=== PATIENT | female | born 1975 | race Caucasian/White ===

== ENCOUNTER 2017-02-06 01:23 | Emergency (ER) | payer SELFPAY ==
[2017-02-06 01:40] VITALS: TEMP 98.2
--- NOTE | 2017-02-06 01:56 | ED PDOC ---
Arrival/HPI - General Chief Complaint: Dizziness/Lightheaded Time Seen by Provider: 02/06/17 01:24 Historian: Patient - History of Present Illness Narrative History of Present Illness (Text): 02/06/17 01:52 Lianne Acuna is a 41 year old female who presents to the emergency department complaining of 1 week duration of dizziness and intermittent episodes of headache for past 3 days. Patient reports she initially felt sharp pain to the left temporal region 3 days ago. States she felt similar quality pain to the right temporal region tonight, which prompted her to present to emergency department for evaluation. Denies any fever, chills, neck pain, nausea, vomiting , diarrhea, urinary symptoms, or any other complaints at this time. Time/Duration: 1 week Symptom Onset: Gradual Symptom Course: Intermittent Severity Level: Mild Activities at Onset: Light Past Medical History - Provider Review Nursing Documentation Reviewed: Yes - Cardiac Hx Cardiac Disorders: No - Pulmonary Hx Respiratory Disorders: Yes Hx Asthma: Yes - Neurological Hx Neurological Disorder: No - HEENT Hx HEENT Disorder: No - Renal Hx Renal Disorder: No - Endocrine/Metabolic Hx Endocrine Disorders: No - Hematological/Oncological Hx Blood Disorders: No - Integumentary Hx Dermatological Disorder: No - Musculoskeletal/Rheumatological Hx Musculoskeletal Disorders: No - Gastrointestinal Hx Gastrointestinal Disorders: No - Genitourinary/Gynecological Hx Genitourinary Disorders: No - Psychiatric Hx Psychophysiologic Disorder: No Hx Substance Use: No Family/Social History - Physician Review Nursing Documentation Reviewed: Yes Family/Social History: No Known Family HX Smoking Status: Never Smoked Hx Alcohol Use: No Hx Substance Use: No Allergies/Home Meds Allergies/Adverse Reactions: Allergies shellfish derived Allergy (Verified 02/06/17 01:39) RASH Home Medications: Home Meds Medication Instructions Recorded Confirmed No Known Home Med 02/06/17 02/06/17 Review of Systems - Physician Review All systems were reviewed & negative as marked: Yes - Review of Systems Constitutional: Normal, Fatigue. absent: Fevers Respiratory: Normal. absent: SOB, Cough Cardiovascular: Normal. absent: Chest Pain, Palpitations Gastrointestinal: absent: Abdominal Pain, Diarrhea, Nausea, Vomiting Neurological: Headache, Dizziness. absent: Focal Weakness Psychiatric: Normal Physical Exam Vital Signs Reviewed: Yes Vital Signs Temp Pulse Resp BP Pulse Ox 02/06/17 04:47 70 18 135/82 100 02/06/17 01:39 98.2 F 91 H 16 155/87 H 99 Temperature: Afebrile Blood Pressure: Normal Pulse: Regular Respiratory Rate: Normal Appearance: Positive for: Well-Appearing, Non-Toxic, Comfortable Pain Distress: None Mental Status: Positive for: Alert and Oriented X 3 - Systems Exam Head: Present: Atraumatic, Normocephalic Pupils: Present: PERRL Extroacular Muscles: Present: EOMI Conjunctiva: Present: Normal Ears: Present: Normal, NORMAL TM, Normal Canal. No: Erythema, TM Bulging Mouth: Present: Moist Mucous Membranes Neck: Present: Normal Range of Motion. No: MIDLINE TENDERNESS, Paraspinal Tenderness Respiratory/Chest: Present: Clear to Auscultation, Good Air Exchange. No: Respiratory Distress, Accessory Muscle Use Cardiovascular: Present: Regular Rate and Rhythm, Normal S1, S2. No: Murmurs Abdomen: Present: Normal Bowel Sounds. No: Tenderness, Distention, Peritoneal Signs Upper Extremity: Present: Normal Inspection. No: Cyanosis, Edema Lower Extremity: Present: Normal Inspection. No: Edema Neurological: Present: GCS=15, CN II-XII Intact, Speech Normal Skin: Present: Warm, Dry, Normal Color. No: Rashes Psychiatric: Present: Alert, Oriented x 3, Normal Insight, Normal Concentration Medical Decision Making ED Course and Treatment: 02/06/17 01:58 Impression: A 41 year old female who presents to the emergency department complaining of dizziness for past week and intermittent headache for past 3 days. Plan: -- CT head -- Labs -- POC urine -- Reassess and disposition Progress Notes: 02/06/17 04:16 CT Head results reviewed: FINDINGS: Limitation: Some of the images are degraded by motion artifact. Inferior margins of the temporal lobes are also not included in their entirety. Brain: Images of the brain with artifact, limit evaluation. Allowing for artifact, no acute hemorrhage or acute infarct identified. Ventricles: No hydrocephalus. Bones/joints: Unremarkable. No acute fracture. Soft tissues: Unremarkable. Sinuses: Unremarkable as visualized. No acute sinusitis. Mastoid air cells: Unremarkable as visualized. No mastoid effusion. IMPRESSION: Suboptimal exam, as above, with no acute intracranial abnormality identified. 02/06/17 04:50 On re-evaluation, patient feels better and is in no acute distress. I have discussed the results and plan with the patient, who expresses understanding. Patient in agreement with plan to be discharged home. Patient is stable for discharge. Patient was instructed to follow up with physician or return if symptoms worsen or new concerning symptoms arise. Re-evaluation Time: 04:44 Reassessment Condition: Re-examined, Improved - Lab Interpretations Lab Results: 02/06/17 01:56 02/06/17 01:56 Lab Results 02/06/17 01:56: Sodium 139, Potassium 4.2, Chloride 107, Carbon Dioxide 22, Anion Gap 14, BUN 9, Creatinine 0.6, Est GFR ( Amer) > 60, Est GFR (Non- Af Amer) > 60, Random Glucose 91, Calcium 8.9, Total Bilirubin 0.2, AST 24, ALT 41, Alkaline Phosphatase 76, Total Protein 7.1, Albumin 3.8, Globulin 3.3, Albumin/Globulin Ratio 1.2 02/06/17 01:56: WBC 6.2, RBC 3.67, Hgb 10.9 L, Hct 32.7 L, MCV 89.1, MCH 29.7, MCHC 33.3, RDW 12.8, Plt Count 257, MPV 9.7, Gran % 41.5 L, Lymph % (Auto) 44.3 H, Harding % (Auto) 10.3 H, Eos % (Auto) 3.4, Baso % (Auto) 0.5, Gran # 2.58, Lymph # 2.8, Harding # 0.6, Eos # 0.2, Baso # 0.03 - RAD Interpretation Radiology Orders: 02/06/17 01:48 HEAD W/O CONTRAST [CT] Stat - Scribe Statement The provider has reviewed the documentation as recorded by the Luisibe Jerry Rhoades Provider Attestation: Provider Scribe Attestation: All medical record entries made by the Scribe were at my direction and personally dictated by me. I have reviewed the chart and agree that the record accurately reflects my personal performance of the history, physical exam, medical decision making, and the department course for this patient. I have also personally directed, reviewed, and agree with the discharge instructions and disposition. Disposition/Present on Arrival - Present on Arrival Any Indicators Present on Arrival: No History of DVT/PE: No History of Uncontrolled Diabetes: No Urinary Catheter: No History of Decub. Ulcer: No History Surgical Site Infection Following: None - Disposition Have Diagnosis and Disposition been Completed?: Yes Diagnosis: Dizziness, Headache Disposition: HOME/ ROUTINE Disposition Time: 04:44 Patient Problems: Current Active Problems Problem Status Onset Dizziness Acute Headache Acute Condition: GOOD Discharge Instructions (ExitCare): Acute Headache (ED), Dizziness (ED) Referrals: Tita Kaiser, [Primary Care Provider] - Follow up with primary
[2017-02-06 02:35] LABS: ADD MANUAL DIFF? NO
[2017-02-06 02:36] LABS: ALB/GLOB RATIO 1.2 (1.1-1.8); ALKALINE PHOSPHATASE 76 U/L (38-133); ALT/SGPT 41 U/L (7-56); AST/SGOT 24 U/L (15-39); BILIRUBIN,TOTAL 0.2 mg/dL (0.2-1.3); BLOOD UREA NITROGEN 9 mg/dL (7-21); CALCIUM 8.9 mg/dL (8.4-10.5); CARBON DIOXIDE 22 mmol/L (21-33); CHLORIDE 107 mmol/L (95-110); GFR AFRICAN-AMERICAN > 60; GLUCOSE,RANDOM 91 mg/dL (70-110); POTASSIUM 4.2 mmol/L (3.6-5.0); SODIUM 139 mmol/L (132-148); TOTAL PROTEIN 7.1 g/dL (5.8-8.3)
[2017-02-06 02:39] LABS: BASO # 0.03 K/mm3 (0.0-2.0); BASO % 0.5 % (0.0-3.0); EOS # 0.2 (0.0-0.7); EOS % 3.4 % (1.5-5.0); GRAN # 2.58 (1.4-6.5); GRAN % 41.5 % (50.0-68.0); HEMATOCRIT 32.7 % (36.0-48.0); LYMPH # 2.8 (1.2-3.4); LYMPH % 44.3 % (22.0-35.0); MEAN CELL VOLUME 89.1 fL (80.0-105.0); MEAN CORPUSCULAR HEMOGLOBIN 29.7 pg (25.0-35.0); MEAN CORPUSCULAR HGB CONC 33.3 g/dl (31.0-37.0); MEAN PLATELET VOLUME 9.7 fl (7.0-11.0); MONO # 0.6 (0.1-0.6); MONO % 10.3 % (1.0-6.0); PLATELET COUNT 257 10^3/uL (120.0-450.0); RED CELL DISTRIBUTION WIDTH 12.8 % (11.5-14.5); WHITE BLOOD COUNT 6.2 10^3/ul (4.5-11.0)
[2017-02-06 04:48] VITALS: BP 135/82; PULSE 70; RESP 18; O2SAT 100
--- NOTE | 2017-02-06 07:31 | CT ---
PROCEDURE: CT HEAD WITHOUT CONTRAST. HISTORY: Headache COMPARISON: None available. TECHNIQUE: Axial computed tomography images were obtained through the head/brain without intravenous contrast. Examination is limited by motion degraded images. Radiation dose: Total exam DLP = 629.06 mGy-cm. This CT exam was performed using one or more of the following dose reduction techniques: Automated exposure control, adjustment of the mA and/or kV according to patient size, and/or use of iterative reconstruction technique. FINDINGS: HEMORRHAGE: No intracranial hemorrhage. BRAIN: Ko-white matter differentiation is preserved. There is no mass, mass effect or abnormal extra-axial fluid collection. VENTRICLES: The ventricles are normal in size, shape and configuration. CALVARIUM: There is no calvarial fracture or extracranial soft tissue swelling. PARANASAL SINUSES: Predominantly clear. MASTOID AIR CELLS: Predominantly clear the OTHER FINDINGS: None. IMPRESSION: Motion degraded study. No acute intracranial abnormality. A preliminary report was provided by [email or web address].
== END 2017-02-06 04:56 | disposition home or self-care (01) ==
LOC: ED 01:23 → MERGE 01:23 → ED 04:56
DX: R42 Dizziness and giddiness (principal); R51 Headache

== ENCOUNTER 2017-02-12 23:20 | Emergency (ER) | payer SELFPAY ==
[2017-02-12 23:33] VITALS: RESP 16; TEMP 98.6; BMI 24.0
--- NOTE | 2017-02-13 00:01 | ED PDOC ---
Arrival/HPI - General Chief Complaint: Dizziness/Lightheaded Time Seen by Provider: 02/12/17 23:37 Historian: Patient - History of Present Illness Narrative History of Present Illness (Text): 02/12/17 23:54 Lianne Acuna is a 41 year old female who presents to the emergency department complaining of dizziness for past week. Describes as a room-spinning sensation which is worsened with movement. States she was evaluated at [facility] for similar symptoms last week and was discharge home after a negative CT Head study. Today patient reports symptoms presented while she was driving. Denies any fever, chills, chest pain, shortness of breath, nausea, vomiting, diarrhea, urinary symptoms, or any other complaints at this time. Time/Duration: 1 week Symptom Onset: Gradual Severity Level: Mild Activities at Onset: Light Past Medical History - Provider Review Nursing Documentation Reviewed: Yes - Infectious Disease Hx of Infectious Diseases: None - Cardiac Hx Cardiac Disorders: No - Pulmonary Hx Respiratory Disorders: Yes Hx Asthma: Yes - Neurological Hx Neurological Disorder: No - HEENT Hx HEENT Disorder: No - Renal Hx Renal Disorder: No - Endocrine/Metabolic Hx Endocrine Disorders: No - Hematological/Oncological Hx Blood Disorders: No - Integumentary Hx Dermatological Disorder: No - Musculoskeletal/Rheumatological Hx Musculoskeletal Disorders: No - Gastrointestinal Hx Gastrointestinal Disorders: No - Genitourinary/Gynecological Hx Genitourinary Disorders: No - Psychiatric Hx Psychophysiologic Disorder: No Hx Substance Use: No - Anesthesia Hx Anesthesia: No - Suicidal Assessment Feels Threatened In Home Enviroment: No Family/Social History - Physician Review Nursing Documentation Reviewed: Yes Family/Social History: No Known Family HX Smoking Status: Never Smoked Hx Alcohol Use: No Hx Substance Use: No Allergies/Home Meds Allergies/Adverse Reactions: Allergies shellfish derived Allergy (Verified 02/06/17 01:39) RASH Review of Systems - Physician Review All systems were reviewed & negative as marked: Yes - Review of Systems Constitutional: Normal. absent: Fatigue, Fevers Respiratory: Normal. absent: SOB, Cough, Sputum Cardiovascular: Normal. absent: Chest Pain, Palpitations Gastrointestinal: Normal. absent: Abdominal Pain, Diarrhea, Nausea, Vomiting Neurological: Headache, Dizziness Psychiatric: Normal Physical Exam Vital Signs Reviewed: Yes Vital Signs Temp Pulse Resp BP Pulse Ox 02/12/17 23:30 98.6 F 102 H 16 131/83 99 Temperature: Afebrile Blood Pressure: Normal Pulse: Tachycardic Respiratory Rate: Normal Appearance: Positive for: Well-Appearing, Non-Toxic, Comfortable Pain Distress: None Mental Status: Positive for: Alert and Oriented X 3 Finger Stick Blood Glucose: 90 - Systems Exam Head: Present: Atraumatic, Normocephalic Pupils: Present: PERRL Conjunctiva: Present: Normal Mouth: Present: Moist Mucous Membranes Neck: Present: Normal Range of Motion. No: MIDLINE TENDERNESS, Paraspinal Tenderness Respiratory/Chest: Present: Clear to Auscultation, Good Air Exchange. No: Respiratory Distress, Accessory Muscle Use Cardiovascular: Present: Regular Rate and Rhythm, Normal S1, S2. No: Murmurs Abdomen: Present: Normal Bowel Sounds. No: Tenderness, Distention, Peritoneal Signs Upper Extremity: Present: Normal Inspection. No: Cyanosis, Edema Lower Extremity: Present: Normal Inspection. No: Edema Neurological: Present: GCS=15, CN II-XII Intact, Speech Normal, Motor Func Grossly Intact, Normal Sensory Function Skin: Present: Warm, Dry, Normal Color. No: Rashes Psychiatric: Present: Alert, Oriented x 3, Normal Insight, Normal Concentration Medical Decision Making ED Course and Treatment: 02/13/17 00:02 Impression: A 41 year old female who presents to the emergency department complaining of 1 week duration of dizziness. Plan: -- Meclizine -- Reassess and disposition Progress Notes: 02/13/17 02:09 On reevaluation the patient feels better and is in no acute distress. I have discussed the results and plan with the patient, who expresses understanding. Patient given the opportunity to ask question, all questions were answered and there is agreement with the plan to discharge the patient home. Patient is stable for discharge. Patient was instructed to follow up with physician/clinic in 1-2 days or return if symptoms persist/worsen or new concerning symptoms arise. - Medication Orders Current Medication Orders: Discontinued Medications Meclizine HCl (Antivert) 25 mg PO STAT STA Stop: 02/12/17 23:53 Last Admin: 02/13/17 00:08 Dose: 25 mg - Scribe Statement The provider has reviewed the documentation as recorded by the Sari Rhoades Provider Attestation: Provider Scribe Attestation: All medical record entries made by the Scribe were at my direction and personally dictated by me. I have reviewed the chart and agree that the record accurately reflects my personal performance of the history, physical exam, medical decision making, and the department course for this patient. I have also personally directed, reviewed, and agree with the discharge instructions and disposition. Disposition/Present on Arrival - Present on Arrival Any Indicators Present on Arrival: No History of DVT/PE: No History of Uncontrolled Diabetes: No Urinary Catheter: No History of Decub. Ulcer: No History Surgical Site Infection Following: None - Disposition Have Diagnosis and Disposition been Completed?: Yes Diagnosis: Labyrinthitis Disposition: HOME/ ROUTINE Disposition Time: 02:04 Patient Plan: Discharge Condition: GOOD Discharge Instructions (ExitCare): Labyrinthitis (ED) Additional Instructions: Take meds as prescribed/follow up with your doctor this week Prescriptions: Meclizine [Meclizine*] 25 mg PO Q6 PRN #20 tab PRN Reason: Dizziness
[2017-02-13 02:13] VITALS: BP 137/76; PULSE 82; O2SAT 98
== END 2017-02-13 02:15 | disposition home or self-care (01) ==
LOC: ED 23:20
DX: H83.09 Labyrinthitis, unspecified ear (principal)

== ENCOUNTER 2017-12-10 12:23 | Emergency (ER) | payer MEDICAID, OTHER ==
[2017-12-10 13:08] VITALS: BMI 24.9
[2017-12-10 13:09] VITALS: PULSE 66; RESP 18; TEMP 98.5
--- NOTE | 2017-12-10 13:34 | ED PDOC ---
Arrival/HPI - General Chief Complaint: Chest Pain Time Seen by Provider: 12/10/17 13:08 - History of Present Illness Narrative History of Present Illness (Text): 42 year old F c Past medical history asthma p/w chest pain x 3 days. Intermittent, sharp in character, midsternal, 5/10 in severity. Associated with cough, chills, headache, increased burping but has been drinking leonidas tyson. Denies Nausea, vomiting, diarrhea, constipation, fever. Works at a day care. Past Medical History - Infectious Disease Hx of Infectious Diseases: None - Reproductive Menopause: No - Cardiac Hx Cardiac Disorders: No - Pulmonary Hx Respiratory Disorders: Yes Hx Asthma: Yes - Neurological Hx Neurological Disorder: No - HEENT Hx HEENT Disorder: No - Renal Hx Renal Disorder: No - Endocrine/Metabolic Hx Endocrine Disorders: No - Hematological/Oncological Hx Blood Disorders: No - Integumentary Hx Dermatological Disorder: No - Musculoskeletal/Rheumatological Hx Musculoskeletal Disorders: No - Gastrointestinal Hx Gastrointestinal Disorders: No - Genitourinary/Gynecological Hx Genitourinary Disorders: No - Psychiatric Hx Psychophysiologic Disorder: No Hx Substance Use: No - Anesthesia Hx Anesthesia: No - Suicidal Assessment Feels Threatened In Home Enviroment: No Family/Social History Family/Social History: No Known Family HX Smoking Status: Never Smoked Hx Alcohol Use: No Hx Substance Use: No Allergies/Home Meds Allergies/Adverse Reactions: Allergies shellfish derived Allergy (Verified 02/06/17 01:39) RASH Review of Systems - Physician Review All systems were reviewed & negative as marked: Yes - Review of Systems Constitutional: absent: Fevers Respiratory: absent: SOB Physical Exam - Physical Exam Narrative Physical Exam (Text): Constitutional: No acute distress. Head: Normocephalic. Atraumatic. Eyes: PERRL. ENT: Moist mucous membranes. Neck: Supple. Cardiovascular: Regular rate. Chest: Reproducible tenderness. Respiratory: Clear to auscultation bilaterally. GI: Soft. Nontender. Nondistended. Back: No CVA tenderness. Musculoskeletal: No tenderness or swelling of extremities. Skin: No rash. Neurologic: Alert, no focal deficit. Vital Signs Temp Pulse Resp BP Pulse Ox 12/10/17 13:08 98.5 F 66 18 134/88 100 Medical Decision Making ED Course and Treatment: XR chest, EKG, Toradol IM. EKG Sinus rhythm, 60 bpm, no ST/T wave changes. FINDINGS: LUNGS: The lungs are well inflated and clear. PLEURA: No significant pleural effusion identified, no pneumothorax apparent. CARDIOVASCULAR: Normal. OSSEOUS STRUCTURES: No significant abnormalities. VISUALIZED UPPER ABDOMEN: Normal. OTHER FINDINGS: None. IMPRESSION: No active pulmonary disease. Patient declined pain medication. Will discharge, f/u PMD, instructed to return to Emergency department for worsening pain, dyspnea, hemoptysis, nausea, vomiting, or any other problem. - RAD Interpretation Radiology Orders: 12/10/17 13:55 CHEST PORTABLE [RAD] Stat - Medication Orders Current Medication Orders: Discontinued Medications Ketorolac Tromethamine (Toradol) 60 mg IM STAT STA Stop: 12/10/17 13:46 Last Admin: 12/10/17 13:58 Dose: Not Given Non-Admin Reason: Patient Refused Disposition/Present on Arrival - Present on Arrival Any Indicators Present on Arrival: No History of DVT/PE: No History of Uncontrolled Diabetes: No Urinary Catheter: No History of Decub. Ulcer: No History Surgical Site Infection Following: None - Disposition Have Diagnosis and Disposition been Completed?: Yes Diagnosis: Chest wall pain Disposition: HOME/ ROUTINE Disposition Time: 14:12 Patient Plan: Discharge Condition: STABLE Discharge Instructions (ExitCare): Chest Pain (ED) Referrals: Tita Kaiser, [Primary Care Provider] - Follow up with primary Forms: [facility] (Par[place]ayan), WORK NOTE
--- NOTE | 2017-12-10 14:07 | RAD ---
HISTORY: Chest pain COMPARISON: No prior. FINDINGS: LUNGS: The lungs are well inflated and clear. PLEURA: No significant pleural effusion identified, no pneumothorax apparent. CARDIOVASCULAR: Normal. OSSEOUS STRUCTURES: No significant abnormalities. VISUALIZED UPPER ABDOMEN: Normal. OTHER FINDINGS: None. IMPRESSION: No active pulmonary disease.
[2017-12-10 14:24] VITALS: BP 128/76; O2SAT 98
--- NOTE | 2017-12-10 20:06 | CARD ---
APPROVED REPORT EKG Measurement Heart [id number] TN [id number] <Conclusion> Sinus rhythm with short TN Otherwise normal ECG
== END 2017-12-10 14:55 | disposition home or self-care (01) ==
LOC: ED 12:23
DX: R07.89 Other chest pain (principal)

== ENCOUNTER 2018-01-22 15:34 | Emergency (ER) | payer MEDICAID ==
[2018-01-22 15:34] VITALS: BMI 24.9
--- NOTE | 2018-01-22 17:13 | ED PDOC ---
Arrival/HPI - General Chief Complaint: Dizziness/Lightheaded Time Seen by Provider: 01/22/18 16:14 Historian: Patient EM Caveat: Acuity of Condition - History of Present Illness Narrative History of Present Illness (Text): 01/22/18 17:10 Pt is a 42 yr old female with a PMH of vertigo who complains today of dizziness and headache for the last 5 days. Pt states that she has had an odd sensation in her right ear on and off for the last day, denies pain. Pt says that she was given meclizine before for the vertigo which helped but has not taken any recently as she does not care to take pills. also mentioned that before her symptoms started, she was given some very bad news that has caused insomnia and a headache. Since the news, she states an increase in worry and anxiety. Reports current URI and mild dry cough Denies fever, chills, chest pain, shortens of breath, change in vision, hearing, neck pain or rigidity. Denies recent travel. Time/Duration: < week Symptom Onset: Gradual Symptom Course: Unchanged Quality: Pressure Severity Level: 5 Activities at Onset: Rest, Light, Sleeping Context: Home Past Medical History - Provider Review Nursing Documentation Reviewed: Yes - Travel History Have you recently traveled outside [place] w/in the past 3 mons?: No - Infectious Disease Hx of Infectious Diseases: None - Reproductive Menopause: No - Cardiac Hx Cardiac Disorders: No - Pulmonary Hx Respiratory Disorders: Yes Hx Asthma: Yes - Neurological Hx Neurological Disorder: Yes Hx Dizziness: Yes Hx Headaches: Yes Hx Vertigo: Yes - HEENT Hx HEENT Disorder: No - Renal Hx Renal Disorder: No - Endocrine/Metabolic Hx Endocrine Disorders: No - Hematological/Oncological Hx Blood Disorders: No - Integumentary Hx Dermatological Disorder: No - Musculoskeletal/Rheumatological Hx Musculoskeletal Disorders: No - Gastrointestinal Hx Gastrointestinal Disorders: No - Genitourinary/Gynecological Hx Genitourinary Disorders: No - Psychiatric Hx Psychophysiologic Disorder: No Hx Substance Use: No - Anesthesia Hx Anesthesia: No - Suicidal Assessment Feels Threatened In Home Enviroment: No Family/Social History - Physician Review Nursing Documentation Reviewed: Yes Family/Social History: Unknown Family HX Smoking Status: Never Smoked Hx Alcohol Use: Yes Frequency of alcohol use: Socially Hx Substance Use: No Allergies/Home Meds Allergies/Adverse Reactions: Allergies shellfish derived Allergy (Verified 02/06/17 01:39) RASH shrimp Allergy (Verified 12/21/17 19:14) RASH Home Medications: Home Meds Medication Instructions Recorded Confirmed Aspirin [Aspirin Chewable] 162 mg PO DAILY 01/22/18 01/22/18 Meclizine [Meclizine*] 25 mg PO Q6 PRN 01/22/18 01/22/18 Review of Systems - Review of Systems Constitutional: Normal. absent: Fatigue, Fevers Eyes: Normal, Photophobia. absent: Vision Changes, Eye Pain ENT: Normal, Tinnitus. absent: Hearing Changes, TMJ Pain, Epistaxis, Sinus Congestion Respiratory: Normal Cardiovascular: Normal Gastrointestinal: Normal Genitourinary Female: Normal Musculoskeletal: Normal Skin: Normal Neurological: Normal, Headache, Dizziness. absent: Focal Weakness, Gait Changes Endocrine: Normal Hemo/Lymphatic: Normal Psychiatric: Anxiety Physical Exam Vital Signs Reviewed: Yes Vital Signs Temp Pulse Resp BP Pulse Ox 01/22/18 20:15 98.2 F 85 18 139/94 H 100 01/22/18 20:14 98.2 F 85 18 139/94 H 100 01/22/18 19:21 63 18 145/99 H 100 01/22/18 17:18 98.4 F 78 17 149/96 H 99 01/22/18 16:04 98.1 F 86 18 149/93 H 100 Temperature: Afebrile Blood Pressure: Hypertensive Pulse: Regular Respiratory Rate: Normal Appearance: Positive for: Well-Appearing, Non-Toxic, Comfortable Pain Distress: Mild Mental Status: Positive for: Alert and Oriented X 3 - Systems Exam Head: Present: Atraumatic, Normocephalic Pupils: Present: PERRL Extroacular Muscles: Present: EOMI Conjunctiva: Present: Normal Ears: Present: Normal, NORMAL TM, Normal Canal. No: Erythema, TM Bulging, Fluid Mouth: Present: Moist Mucous Membranes Neck: Present: Normal Range of Motion. No: Meningeal Signs Respiratory/Chest: Present: Clear to Auscultation, Good Air Exchange. No: Respiratory Distress, Accessory Muscle Use Cardiovascular: Present: Regular Rate and Rhythm, Normal S1, S2. No: Murmurs Abdomen: No: Tenderness, Distention, Peritoneal Signs Back: Present: Normal Inspection. No: CVA Tenderness, Paraspinal Tenderness, Pain with Leg Raise Upper Extremity: Present: Normal Inspection, Normal ROM, NORMAL PULSES. No: Cyanosis, Edema Lower Extremity: Present: Normal Inspection. No: Edema Neurological: Present: GCS=15, CN II-XII Intact, Speech Normal Skin: Present: Warm, Dry, Normal Color. No: Rashes Psychiatric: Present: Alert, Oriented x 3, Normal Insight, Normal Concentration Medical Decision Making ED Course and Treatment: Impression Pt is a 42 yr old female with a PMH of vertigo who complains today of dizziness and headache for the last 5 days. On exam, neurologically intact; described receiving news of a in the family which has caused insomnia/stress since dizziness started the rest of the exam was benign Plan Labs meclizine and ibuprofen assess and dispo Progress Note Lab results dw pt and encouraged follow up with PMD to check BP and do Fe panel advised to take meclizine prn; hydoxyzine given for anxiety instructed pt on safe medication use and side effects VSS and hemodynamically stable on d/c - Lab Interpretations Lab Results: 01/22/18 19:20 01/22/18 19:20 Lab Results 01/22/18 19:20: Sodium 141, Potassium 4.2, Chloride 108 H, Carbon Dioxide 25, Anion Gap 13, BUN 6 L, Creatinine 0.7, Est GFR ( Amer) > 60, Est GFR (Non -Af Amer) > 60, Random Glucose 80, Calcium 9.0, Total Bilirubin 0.3, AST 26, ALT 29, Alkaline Phosphatase 69, Total Protein 7.4, Albumin 3.9, Globulin 3.5, Albumin/Globulin Ratio 1.1 01/22/18 19:20: WBC 6.5, RBC 3.74, Hgb 10.7 L, Hct 32.1 L, MCV 85.8, MCH 28.6, MCHC 33.3, RDW 13.0, Plt Count 323, MPV 9.3 01/22/18 17:15: Urine Color Yellow, Urine Appearance Clear, Urine pH 6.0, Ur Specific Onyx 1.025, Urine Protein Negative, Urine Glucose (UA) Negative, Urine Ketones Negative, Urine Blood Negative, Urine Nitrate Negative, Urine Bilirubin Negative, Urine Urobilinogen 0.2, Ur Leukocyte Esterase Negative - Medication Orders Current Medication Orders: Discontinued Medications Ibuprofen (Motrin Tab) 400 mg PO STAT STA Stop: 01/22/18 17:03 Last Admin: 01/22/18 17:34 Dose: 400 mg MAR Pain/Vitals Document 01/22/18 17:34 HI (Rec: 01/22/18 17:35 [place] [id number]) Pain Reassessment Is This A Pain ReAssessment? No Sleep Is patient sleeping during reassessment? No Presence of Pain Presence of Pain Yes Meclizine HCl (Antivert) 25 mg PO STAT STA Stop: 01/22/18 16:57 Last Admin: 01/22/18 17:34 Dose: 25 mg Disposition/Present on Arrival - Present on Arrival Any Indicators Present on Arrival: Yes History of DVT/PE: No History of Uncontrolled Diabetes: No Urinary Catheter: No History of Decub. Ulcer: No History Surgical Site Infection Following: None - Disposition Have Diagnosis and Disposition been Completed?: Yes Diagnosis: Vertigo, Anxiety Disposition: HOME/ ROUTINE Disposition Time: 18:48 Patient Plan: Discharge Condition: STABLE Discharge Instructions (ExitCare): Vertigo (a Type of Dizziness), Anxiety, Adult (DC) Additional Instructions: Lianne, thank you for letting us take care of you today. Your provider was WINDY Roque. You were treated for Vertigo and headache. The emergency medical care you received today was directed at your acute symptoms. If you were prescribed any medication, please fill it and take as directed. It may take several days for your symptoms to resolve. Return to the Emergency Department if your symptoms worsen, do not improve, or if you have any other problems. Please follow up with your Primary Doctor to have your Blood Pressure re- checked Please contact your doctor or call one of the physicians/clinics you have been referred to that are listed on the Patient Visit Information form that is included in your discharge packet. Bring any paperwork you were given at discharge with you along with any medications you are taking to your follow up visit. Our treatment cannot replace ongoing medical care by a primary care provider (PCP) outside of the emergency department. Thank you for allowing the [facility] team to be part of your care today. Prescriptions: hydrOXYzine HCl [Atarax] 50 mg PO Q6 5 Days #30 tab Meclizine [Meclizine*] 25 mg PO Q6 #30 tab Referrals: Kyruus Rafat Req, [Non-Staff] - Follow up with primary Forms: [employer] ([employer]), WORK NOTE
[2018-01-22 17:46] LABS: URINE BILIRUBIN NEGATIVE (NEGATIVE); URINE BLOOD NEGATIVE (NEGATIVE); URINE GLUCOSE (UA) NEGATIVE (NEGATIVE); URINE LEUKOCYTE ESTERASE NEGATIVE Leu/uL (NEGATIVE); URINE PROTEIN NEGATIVE mg/dL (<30 mg/dL); URINE UROBILINOGEN 0.2 E.U./dL (<1 E.U./dL)
[2018-01-22 17:47] LABS: URINE APPEARANCE CLEAR (CLEAR); URINE COLOR YELLOW (YELLOW)
[2018-01-22 19:30] LABS: HEMOGLOBIN 10.7 g/dL (12.0-16.0); MEAN CELL VOLUME 85.8 fl (80.0-105.0); MEAN CORPUSCULAR HEMOGLOBIN 28.6 pg (25.0-35.0); MEAN CORPUSCULAR HGB CONC 33.3 g/dl (31.0-37.0); MEAN PLATELET VOLUME 9.3 fl (7.0-11.0); RBC 3.74 10^6/uL (3.5-6.1); WHITE BLOOD COUNT 6.5 10^3/ul (4.5-11.0)
[2018-01-22 19:40] LABS: ALB/GLOB RATIO 1.1 (1.1-1.8); ALBUMIN 3.9 g/dL (3.0-4.8); ALT/SGPT 29 U/L (7-56); AST/SGOT 26 U/L (14-36); BLOOD UREA NITROGEN 6 mg/dL (7-21); GFR AFRICAN-AMERICAN > 60; GFR NON-AFRICAN AMERICAN > 60
[2018-01-22 19:56] VITALS: RESP 18; O2SAT 100
[2018-01-22 20:14] VITALS: BP 139/94; PULSE 85; TEMP 98.2
== END 2018-01-22 20:15 | disposition home or self-care (01) ==
LOC: ED 15:34
DX: F41.9 Anxiety disorder, unspecified (principal); R42 Dizziness and giddiness

== ENCOUNTER 2018-12-04 20:13 | Emergency (ER) | payer MEDICAID, OTHER ==
[2018-12-04 20:52] VITALS: RESP 18; O2SAT 100; BMI 28.6
[2018-12-04] MEDS ORDERED: DiphenhydrAMINE 50 mg/ml Inj IVP STA (21:15)
--- NOTE | 2018-12-04 21:51 | ED PDOC ---
Arrival/HPI - General Chief Complaint: Headache Historian: Patient - History of Present Illness Narrative History of Present Illness (Text): 12/04/18 21:39 43 year old female, with no significant past medical history, presents to the emergency department with headache, since today. Patient informs pain and pressure to the front of the head intermittently today. Patient states she went to the ER on 11/29/18, for dizziness. Patient informs labs showed iron deficiency, which her PMD prescribed a multivitamin for. Patient informs loud sounds and bright lights worsen her headache. Patient states she took an aspirin at home around 16:00 today, with some relief. Patient denies any fevers, chills, chest pain, shortness of breath, cough, diaphoresis, abdominal pain, nausea, vomiting, diarrhea, back pain, neck pain, or any other complaint. Time/Duration: Prior to Arrival, 24 hours Symptom Onset: Gradual Symptom Course: Intermittent Quality: Pressure Activities at Onset: Light Context: Home, Work Past Medical History - Provider Review Nursing Documentation Reviewed: Yes - Infectious Disease Hx of Infectious Diseases: None - Cardiac Hx Hypertension: Yes - Pulmonary Hx Asthma: Yes - Neurological Hx Neurological Disorder: Yes Hx Dizziness: Yes Hx Headaches: Yes Hx Vertigo: Yes - HEENT Hx HEENT Disorder: No - Renal Hx Renal Disorder: No - Endocrine/Metabolic Hx Endocrine Disorders: No - Hematological/Oncological Hx Blood Disorders: No - Integumentary Hx Dermatological Disorder: No - Musculoskeletal/Rheumatological Hx Musculoskeletal Disorders: No - Gastrointestinal Hx Gastrointestinal Disorders: No - Genitourinary/Gynecological Hx Genitourinary Disorders: No - Psychiatric Hx Psychophysiologic Disorder: No Hx Substance Use: No - Anesthesia Hx Anesthesia: No - Suicidal Assessment Feels Threatened In Home Enviroment: No Family/Social History - Physician Review Nursing Documentation Reviewed: Yes Family/Social History: No Known Family HX Smoking Status: Never Smoked Hx Alcohol Use: Yes Hx Substance Use: No Allergies/Home Meds Allergies/Adverse Reactions: Allergies shellfish derived Allergy (Verified 02/06/17 01:39) RASH shrimp Allergy (Verified 12/21/17 19:14) RASH Home Medications: Home Meds Medication Instructions Recorded Confirmed Lisinopril/Hydrochlorothiazide 1 each PO DAILY 02/09/18 02/09/18 [Lisinopril-Hctz 10-12.5 mg Tab] Review of Systems - Physician Review All systems were reviewed & negative as marked: Yes - Review of Systems Constitutional: absent: Fevers, Night Sweats Respiratory: absent: SOB, Cough Cardiovascular: absent: Chest Pain Gastrointestinal: absent: Abdominal Pain, Diarrhea, Nausea, Vomiting Musculoskeletal: absent: Back Pain, Neck Pain Neurological: Headache Physical Exam Vital Signs Reviewed: Yes Vital Signs Temp Pulse Resp BP Pulse Ox 12/04/18 20:47 98.3 F 91 H 18 135/88 100 Temperature: Afebrile Blood Pressure: Normal Pulse: Regular Respiratory Rate: Normal Appearance: Positive for: Well-Appearing, Non-Toxic, Comfortable Pain Distress: None Mental Status: Positive for: Alert and Oriented X 3 - Systems Exam Head: Present: Atraumatic, Normocephalic Pupils: Present: PERRL Extroacular Muscles: Present: EOMI Conjunctiva: Present: Normal Mouth: Present: Moist Mucous Membranes Neck: Present: Normal Range of Motion Respiratory/Chest: Present: Clear to Auscultation, Good Air Exchange. No: Respiratory Distress, Accessory Muscle Use Cardiovascular: Present: Regular Rate and Rhythm, Normal S1, S2. No: Murmurs Abdomen: No: Tenderness, Distention, Peritoneal Signs Back: Present: Normal Inspection Upper Extremity: Present: Normal Inspection. No: Cyanosis, Edema Lower Extremity: Present: Normal Inspection. No: Edema Neurological: Present: GCS=15, CN II-XII Intact, Speech Normal Skin: Present: Warm, Dry, Normal Color. No: Rashes Psychiatric: Present: Alert, Oriented x 3, Normal Insight, Normal Concentration Medical Decision Making ED Course and Treatment: 12/04/18 21:52 Impression: 43 year old female presents with headache Plan: -- Decadron -- Toradol -- Reglan -- Reassess and disposition Prior Visits: Notes and results from previous visits were reviewed. Progress Notes: 12/04/18 23:15 Patient states she feels much better. She is educated on the proper use of analgesics for her headaches and advised to follow up with her neurologist. She demonstrates understanding and will follow up. Opportunity for questions given and answered. Scripts given. She is stable for discharge. - Medication Orders Current Medication Orders: Sodium Chloride (Sodium Chloride 0.9%) 1,000 mls @ 999 mls/hr IV .Q1H1M STA Stop: 12/04/18 22:15 Discontinued Medications Dexamethasone (Decadron Inj) 10 mg IVP STAT STA Stop: 12/04/18 21:16 Ketorolac Tromethamine (Toradol) 30 mg IVP STAT STA Stop: 12/04/18 21:16 Metoclopramide HCl (Reglan) 10 mg IVP STAT STA Stop: 12/04/18 21:16 - Scribe Statement The provider has reviewed the documentation as recorded by the Scribe Faraz Bush Provider Scribe Attestation: All medical record entries made by the Scribe were at my direction and personally dictated by me. I have reviewed the chart and agree that the record accurately reflects my personal performance of the history, physical exam, m edical decision making, and the department course for this patient. I have also personally directed, reviewed, and agree with the discharge instructions and disposition. Disposition/Present on Arrival - Present on Arrival Any Indicators Present on Arrival: No History of DVT/PE: No History of Uncontrolled Diabetes: No Urinary Catheter: No History of Decub. Ulcer: No History Surgical Site Infection Following: None - Disposition Have Diagnosis and Disposition been Completed?: Yes Diagnosis: Tension headache Disposition: HOME/ ROUTINE Disposition Time: 23:24 Patient Plan: Discharge Patient Problems: Current Active Problems Problem Status Onset Tension headache Acute Condition: IMPROVED Discharge Instructions (ExitCare): Tension Headache (DC) Print Language: BULGARIAN Additional Instructions: All medical record entries made by the Scribe were at my direction and personally dictated by me. I have reviewed the chart and agree that the record accurately reflects my personal performance of the history, physical exam, medical decision making, and the department course for this patient. I have also personally directed, reviewed, and agree with the discharge instructions and disposition. Please follow up with your neurologist Take Motrin every SIX hours WITH FOOD for your symptoms Prescriptions: Ibuprofen [Motrin] 600 mg PO Q6H #12 tab Referrals: Wilfred Parkinson MD [Primary Care Provider] - Follow up with primary Forms: [employer] (Irish), WORK NOTE
[2018-12-04] MEDS: Sodium Chloride 0.9% 1,000 ML IV STA (22:24)
[2018-12-05 03:53] VITALS: BP 130/82; PULSE 89; TEMP 98
== END 2018-12-04 23:39 | disposition home or self-care (01) ==
LOC: ED 20:13
DX: G44.209 Tension-type headache, unspecified, not intractable (principal); I10 Essential (primary) hypertension
CPT/HCPCS: 96361; 96374; 99285; J1885; J7030